=== PATIENT | male | born 1995 | race African-American/Black ===

== ENCOUNTER 2017-04-13 23:52 | Emergency (ER) | payer OTHER ==
[~2017-04-13] VITALS: Ht 188 cm; Wt 134.3 kg
[~2017-04-13 23:52] MED LIST: FLEXERIL10 MG PO; MOTRIN600 MG PO; ZOFRAN ODT4 MG PO
[2017-04-14] MEDS ORDERED: FLEXERIL10 MG PO (00:58)
[2017-04-14 01:17] VITALS: BP 126/73
== END 2017-04-14 01:17 | disposition home or self-care (01) ==
LOC: EME 23:52
DX: S16.1XXA Strain of muscle, fascia and tendon at neck level, initial encounter (principal); V43.52XA Car driver injured in collision with other type car in traffic accident, initial encounter
CPT/HCPCS: 71046; 99281; 99283